=== PATIENT | male | born 1975 | race Two or more races ===

== ENCOUNTER 2025-05-10 12:04 | Emergency (ER) | payer OTHER ==
[~2025-05-10] VITALS: Ht 167.6 cm; Wt 79.4 kg
[2025-05-10 14:09] LABS: BASO % 0.5 % (0.1-1.2); EOS # 0.05 (0.04-0.54); EOS % 0.6 % (0.7-7.0); LYMPH # 2.11 (1.18-3.74); LYMPH % 25.6 % (19.3-53.1); MEAN PLATELET VOLUME 10.20 fl (9.4-12.4); MONO # 0.37 (0.24-0.82); MONO % 4.5 % (4.7-12.5); NEUT # 5.66 (1.56-6.13); NEUT % 68.6 % (34.0-71.1); RED CELL DISTRIBUTION WIDTH 12.5 % (11.6-14.4)
[2025-05-10 14:29] LABS: INR 1.0
[2025-05-10] MEDS ORDERED: 0.9 % SODIUM CHLORIDE 1,000 ML IV ONE (14:45)
[2025-05-10 14:58] LABS: ALT/SGPT 26.0 U/L (12-78); AST/SGOT 16.0 U/L (15-37); BILIRUBIN TOTAL 0.42 mg/dL (0.3-1.2); BUN CREA RATIO 18.0 (7.0-25.0); CREATININE SERUM 1.01 mg/dL (0.70-1.30); GFR 78.51; GLOBULINA 3.6 G/DL (2.4-3.5); GLUCOSE FASTING 113.0 mg/dL (65-100); OSMOLALITY SERUM 282.0 MOSM/KG (275-295)
[2025-05-10 15:19] LABS: URINE APPEARANCE Clear; URINE BILIRRUBIN Negative (NEGATIVE); URINE BLOOD Negative; URINE COLOR Yellow; URINE GLUCOSE Negative (NEGATIVE); URINE KETONE Trace (NEGATIVE); URINE LEUKOCYTE Negative; URINE NITRATE Negative; URINE PROTEIN 30 (NEGATIVE); URINE UROBILINOGEN 0.2 E.U./dl
[2025-05-10 15:20] LABS: URINE BACTERIA 22.8 uL (0.0-1933); URINE EPITHELIAL CELLS 2.1 uL (0.0-38.8); URINE RBC 4.2 uL (0.0-20.8); URINE WBC 2.0 uL (0.0-23.2)
[2025-05-10 15:39] LABS: URINE CAST 0.14 uL (0.0-1.40)
[2025-05-10] MEDS ORDERED: ONDANSETRON HCL 2 MG/ML VIAL IV ONE (18:00)
[2025-05-10] MEDS ORDERED: METHYLPREDNISOLONE SOD SUCC 125 MG VIAL IV ONE (19:15)
[2025-05-10] MEDS ORDERED: MECLIZINE HCL 25 MG TABLET PO ONE ×2 (19:15→22:00)
[2025-05-10] MEDS ORDERED: DIPHENHYDRAMINE HCL 50 MG/ML VIAL 1ML IV ONE (19:15)
[2025-05-10] MEDS ORDERED: ONDANSETRON ODT8 MG PO (21:50)
[2025-05-10] MEDS ORDERED: DRAMAMINE LESS25 MG PO (21:50)
[2025-05-10] MEDS ORDERED: MEDROLPACK PO (21:50)
== END 2025-05-10 22:29 | disposition home or self-care (01) ==
LOC: ER 12:04
PROVIDERS: General Practice
DX: R42 Dizziness and giddiness (principal); G51.0 Bell's palsy
CPT/HCPCS: 70552